=== PATIENT | male | born 1965 | race Caucasian/White ===

== ENCOUNTER 2019-07-09 14:59 | Emergency (ER) | payer OTHER ==
[~2019-07-09] VITALS: Ht 182.9 cm; Wt 99.3 kg
[2019-07-09 15:20] VITALS: Ht 182.9 cm; Wt 99.3 kg
[2019-07-09 17:00] VITALS: BP 161/93
== END 2019-07-09 17:01 | disposition home or self-care (01) ==
LOC: ED 14:59
DX: S02.2XXA Fracture of nasal bones, initial encounter for closed fracture (principal); I10 Essential (primary) hypertension; W01.0XXA Fall on same level from slipping, tripping and stumbling without subsequent striking against object, initial encounter; Y93.89 Activity, other specified; Y92.89 Other specified places as the place of occurrence of the external cause; Y99.8 Other external cause status

== ENCOUNTER 2020-09-09 06:10 | Emergency (ER) | payer OTHER ==
[~2020-09-09] VITALS: Ht 182.9 cm; Wt 117.9 kg
[2020-09-09 06:11] VITALS: BP 173/80; Ht 182.9 cm; Wt 117.9 kg
== END 2020-09-09 07:43 | disposition home or self-care (01) ==
LOC: ED 06:10
DX: J45.901 Unspecified asthma with (acute) exacerbation (principal); I10 Essential (primary) hypertension
CPT/HCPCS: J7512